=== PATIENT | female | born 1950 | race Caucasian/White ===

== ENCOUNTER → 2024-01-05 20:55 | Outpatient (REF) | payer OTHER, SELFPAY ==
[2024-01-05 21:12] LABS: Urine Albumin Negative (Neg - Trace); Urine Bilirubin Negative (Negative); Urine Character Clear (Clear); Urine Color Yellow; Urine Glucose Negative (Negative); Urine Ketone Negative (Negative); Urine Leukocyte Negative (Negative); Urine Nitrite Negative (Negative); Urine Occult Blood Negative (Negative); Urine Specific Gravity 1.005 (<1.030); Urine Urobilinogen Negative (Neg - 1+)
== END ==
LOC: OLAB 20:55
PROVIDERS: ATTENDING PHYSICIAN Student in an Organized Health Care Education/Training Program
DX: R31.0 Gross hematuria (principal); Z01.89 Encounter for other specified special examinations
CPT/HCPCS: 81003; 87086

== ENCOUNTER → 2024-01-16 10:25 | Outpatient (REF) | payer OTHER, SELFPAY ==
[2024-01-16 11:10] LABS: Blood Urea Nitrogen 16 mg/dl (7-17); Calcium 9.3 mg/dl (8.4-10.2); Carbon Dioxide 28 mmol/L (22-30); Chloride 102 mmol/L (98-107); Glucose 111 mg/dl (70-99); Sodium 137 mmol/L (135-145); eGFR > 60.00
== END ==
LOC: REG 10:25
PROVIDERS: ATTENDING PHYSICIAN Student in an Organized Health Care Education/Training Program
DX: I72.8 Aneurysm of other specified arteries (principal)
CPT/HCPCS: 36415; 80048

== ENCOUNTER → 2024-01-19 12:46 | Outpatient (REF) | payer OTHER, SELFPAY | LOC: WDC 12:46 | PROVIDERS: ATTENDING PHYSICIAN Student in an Organized Health Care Education/Training Program | DX: Z00.00 Encounter for general adult medical examination without abnormal findings (principal); N95.1 Menopausal and female climacteric states; Z12.31 Encounter for screening mammogram for malignant neoplasm of breast; Z78.0 Asymptomatic menopausal state; M85.88 Other specified disorders of bone density and structure, other site | CPT/HCPCS: 77063; 77067; 77080 ==

== ENCOUNTER → 2024-02-03 15:25 | Outpatient (REF) | payer OTHER, SELFPAY | LOC: RAD 15:25 | PROVIDERS: ATTENDING PHYSICIAN Family Medicine; FAMILY PHYSICIAN Student in an Organized Health Care Education/Training Program | DX: I72.8 Aneurysm of other specified arteries (principal) | CPT/HCPCS: 74177; Q9967 ==

== ENCOUNTER → 2024-03-24 09:40 | Outpatient (REF) | payer OTHER, SELFPAY ==
[2024-03-24 10:10] LABS: % Basophils 0.2 % (0-2); % Eosinophils 0.4 % (0-6); % Immature Granulocytes 0.1 % (0-0.5); % Lymphocytes 81.8 % (20.5-51.1); % Monocytes 9.2 % (1.7-9.3); % Neutrophils 8.3 % (42.2-75.2); Absolute Basophils 0.1 10^3/uL (0-0.2); Absolute Eosinophils 0.1 10^3/uL (0-0.7); Absolute Lymphocytes 18.5 10^3/uL (1.2-3.4); Absolute Monocytes 2.1 10^3/uL (0.1-0.6); Absolute Neutrophils 1.9 10^3/uL (1.4-6.5); Hematocrit 35.6 % (37.0-47.0); Hemoglobin 11.4 g/dL (12.0-16.0); Mean Corpuscular Hgb 27.1 pg (27.0-31.0); Mean Corpuscular Volume 84.8 fL (81.0-99.0); Mean Platelet Volume 9.2 fL (7.4-10.4); Nucleated Red Blood Cells % 0 %; Platelet Count 105 10^3/uL (130-400); Red Cell Dist. Width 14.6 % (11.5-14.5); White Blood Cell Count 22.6 10^3/uL (4.8-10.8)
[2024-03-24 10:46] LABS: LDH 223 U/L (120-246)
[2024-03-25 01:08] LABS: IgA 74 mg/dl (70-400); IgG 465 mg/dl (700-1600)
[2024-03-25 01:41] LABS: IgM < 25 mg/dl (40-230)
[2024-03-25 19:31] LABS: Number Of Markers 26 markers; Source Blood
== END ==
LOC: REG 09:40
PROVIDERS: ATTENDING PHYSICIAN Internal Medicine Hematology & Oncology; FAMILY PHYSICIAN Student in an Organized Health Care Education/Training Program
DX: R16.1 Splenomegaly, not elsewhere classified (principal); D72.829 Elevated white blood cell count, unspecified; C83.07 Small cell B-cell lymphoma, spleen; C91.10 Chronic lymphocytic leukemia of B-cell type not having achieved remission
CPT/HCPCS: 36415; 82784; 83615; 85025

== ENCOUNTER → 2024-05-24 11:17 | Outpatient (REF) | payer OTHER, SELFPAY | LOC: HWRAD 11:17 | PROVIDERS: ATTENDING PHYSICIAN Student in an Organized Health Care Education/Training Program | DX: Z87.891 Personal history of nicotine dependence (principal) | CPT/HCPCS: 71271 ==

== ENCOUNTER → 2024-08-04 10:50 | Outpatient (REF) | payer OTHER, SELFPAY ==
[2024-08-04 12:02] LABS: Hemoglobin 10.8 g/dL (12.0-16.0); Mean Corp Hgb Conc. 32.7 g/dL (33.0-37.0); Mean Corpuscular Hgb 26.7 pg (27.0-31.0); Mean Corpuscular Volume 81.7 fL (81.0-99.0); Mean Platelet Volume 9.8 fL (7.4-10.4); Platelet Count 108 10^3/uL (130-400); Red Blood Cell Count 4.04 10^6/uL (4.20-5.40); Red Cell Dist. Width 14.5 % (11.5-14.5); White Blood Cell Count 22.1 10^3/uL (4.8-10.8)
[2024-08-04 12:49] LABS: % Basophils 0.2 % (0-2); % Eosinophils 0.4 % (0-6); % Immature Granulocytes 0.1 % (0-0.5); % Lymphocytes 79.6 % (20.5-51.1); % Monocytes 12.3 % (1.7-9.3); % Neutrophils 7.4 % (42.2-75.2); Absolute Basophils 0.1 10^3/uL (0-0.2); Absolute Eosinophils 0.1 10^3/uL (0-0.7); Absolute Lymphocytes 17.6 10^3/uL (1.2-3.4); Absolute Monocytes 2.7 10^3/uL (0.1-0.6); Absolute Neutrophils 1.6 10^3/uL (1.4-6.5); Nucleated Red Blood Cells % 0 %
[2024-08-04 13:20] LABS: LDH 231 U/L (120-246)
== END ==
LOC: REG 10:50
PROVIDERS: ATTENDING PHYSICIAN Internal Medicine Hematology & Oncology; FAMILY PHYSICIAN Emergency Medicine
DX: R16.1 Splenomegaly, not elsewhere classified (principal); D72.829 Elevated white blood cell count, unspecified; C83.07 Small cell B-cell lymphoma, spleen; C91.10 Chronic lymphocytic leukemia of B-cell type not having achieved remission
CPT/HCPCS: 36415; 83615; 85025

== ENCOUNTER → 2024-08-19 10:53 | Outpatient (REF) | payer OTHER, SELFPAY ==
[2024-08-19 11:33] LABS: Hematocrit 34.5 % (37.0-47.0); Hemoglobin 11.2 g/dL (12.0-16.0); Mean Corp Hgb Conc. 32.5 g/dL (33.0-37.0); Mean Corpuscular Hgb 26.3 pg (27.0-31.0); Mean Platelet Volume 9.5 fL (7.4-10.4); Platelet Count 110 10^3/uL (130-400); Red Blood Cell Count 4.26 10^6/uL (4.20-5.40); Red Cell Dist. Width 14.4 % (11.5-14.5); White Blood Cell Count 23.3 10^3/uL (4.8-10.8)
[2024-08-19 11:44] LABS: ALT (SGPT) 18 U/L (0-35); AST (SGOT) 26 U/L (14-36); Alkaline Phosphatase 86 U/L (38-126); Blood Urea Nitrogen 20 mg/dl (7-17); Calcium 9.2 mg/dl (8.4-10.2); Carbon Dioxide 23 mmol/L (22-30); Chloride 105 mmol/L (98-107); Glucose 101 mg/dl (70-99); Potassium 4.4 mmol/L (3.5-5.1); Sodium 140 mmol/L (135-145); Total Bilirubin 0.7 mg/dl (0.2-1.3); Total Protein 5.9 g/dl (6.3-8.2); eGFR > 60.00
[2024-08-19 11:53] LABS: % Basophils 0.2 % (0-2); % Eosinophils 0.3 % (0-6); % Lymphocytes 79.8 % (20.5-51.1); % Monocytes 12.8 % (1.7-9.3); % Neutrophils 6.9 % (42.2-75.2); Absolute Eosinophils 0.1 10^3/uL (0-0.7); Absolute Lymphocytes 18.6 10^3/uL (1.2-3.4); Absolute Neutrophils 1.6 10^3/uL (1.4-6.5); Nucleated Red Blood Cells % 0 %
[2024-08-19 13:23] LABS: Hepatitis B Surface Antigen Negative (Negative)
[2024-08-19 13:41] LABS: Hepatitis B Core Ab, Total Negative (Negative); Hepatitis B Surface Antibody Positive
== END ==
LOC: REG 10:53
PROVIDERS: ATTENDING PHYSICIAN Internal Medicine Hematology & Oncology; FAMILY PHYSICIAN Emergency Medicine
DX: R16.1 Splenomegaly, not elsewhere classified (principal); D72.829 Elevated white blood cell count, unspecified; C83.07 Small cell B-cell lymphoma, spleen; C91.10 Chronic lymphocytic leukemia of B-cell type not having achieved remission
CPT/HCPCS: 36415; 80053; 85025; 86704; 86706; 87340

== ENCOUNTER → 2024-09-07 10:10 | Outpatient (REF) | payer OTHER, SELFPAY ==
[2024-09-07 11:26] LABS: Hematocrit 34.1 % (37.0-47.0); Mean Corp Hgb Conc. 32.3 g/dL (33.0-37.0); Mean Corpuscular Hgb 26.8 pg (27.0-31.0); Mean Corpuscular Volume 83.2 fL (81.0-99.0); Mean Platelet Volume 9.9 fL (7.4-10.4); Platelet Count 107 10^3/uL (130-400); Red Cell Dist. Width 13.8 % (11.5-14.5); White Blood Cell Count 21.4 10^3/uL (4.8-10.8)
[2024-09-07 11:47] LABS: Normal RBC Morphology Yes; Platelets Checked Yes; Segmented Neutrophils 10 % (42-75)
[2024-09-07 11:48] LABS: Absolute Neutrophils -Man Diff 2.1 10^3/uL (1.4-6.5); Band Neutrophils 0 % (0-3); Lymphocytes 86 % (20-51); Monocytes 4 % (2-9); Smudge Cells 1+; Total Cells Counted 100
[2024-09-07 11:55] LABS: ALT (SGPT) 14 U/L (0-35); AST (SGOT) 24 U/L (14-36); Albumin 3.9 g/dl (3.5-5.0); Alkaline Phosphatase 79 U/L (38-126); Blood Urea Nitrogen 14 mg/dl (7-17); Calcium 9.3 mg/dl (8.4-10.2); Carbon Dioxide 28 mmol/L (22-30); Chloride 104 mmol/L (98-107); Glucose 99 mg/dl (70-99); Potassium 4.3 mmol/L (3.5-5.1); Sodium 142 mmol/L (135-145); Total Bilirubin 0.6 mg/dl (0.2-1.3); Total Protein 5.8 g/dl (6.3-8.2); eGFR > 60.00
== END ==
LOC: REG 10:10
PROVIDERS: ATTENDING PHYSICIAN Internal Medicine Hematology & Oncology; FAMILY PHYSICIAN Emergency Medicine
DX: R16.1 Splenomegaly, not elsewhere classified (principal); D72.829 Elevated white blood cell count, unspecified; C83.07 Small cell B-cell lymphoma, spleen; C91.10 Chronic lymphocytic leukemia of B-cell type not having achieved remission
CPT/HCPCS: 36415; 80053; 85025

== ENCOUNTER → 2024-09-14 11:04 | Outpatient (REF) | payer OTHER, SELFPAY ==
[2024-09-14 12:08] LABS: % Basophils 0.4 % (0-2); % Eosinophils 1.5 % (0-6); % Lymphocytes 46.9 % (20.5-51.1); % Monocytes 12.2 % (1.7-9.3); Absolute Lymphocytes 1.3 10^3/uL (1.2-3.4); Absolute Monocytes 0.3 10^3/uL (0.1-0.6); Absolute Neutrophils 1.1 10^3/uL (1.4-6.5); Hematocrit 36.8 % (37.0-47.0); Hemoglobin 11.9 g/dL (12.0-16.0); Mean Corp Hgb Conc. 32.3 g/dL (33.0-37.0); Mean Corpuscular Hgb 25.5 pg (27.0-31.0); Mean Corpuscular Volume 78.8 fL (81.0-99.0); Mean Platelet Volume 9.7 fL (7.4-10.4); Nucleated Red Blood Cells % 0 %; Platelet Count 120 10^3/uL (130-400); Red Blood Cell Count 4.67 10^6/uL (4.20-5.40); Red Cell Dist. Width 13.6 % (11.5-14.5); White Blood Cell Count 2.7 10^3/uL (4.8-10.8)
[2024-09-14 12:47] LABS: ALT (SGPT) 13 U/L (0-35); AST (SGOT) 23 U/L (14-36); Albumin 4.2 g/dl (3.5-5.0); Alkaline Phosphatase 58 U/L (38-126); Blood Urea Nitrogen 19 mg/dl (7-17); Calcium 9.1 mg/dl (8.4-10.2); Carbon Dioxide 27 mmol/L (22-30); Chloride 102 mmol/L (98-107); Glucose 103 mg/dl (70-99); Potassium 4.5 mmol/L (3.5-5.1); Sodium 141 mmol/L (135-145); Total Bilirubin 1.1 mg/dl (0.2-1.3); eGFR > 60.00
== END ==
LOC: REG 11:04
PROVIDERS: ATTENDING PHYSICIAN Internal Medicine Hematology & Oncology; FAMILY PHYSICIAN Emergency Medicine
DX: R16.1 Splenomegaly, not elsewhere classified (principal); D72.829 Elevated white blood cell count, unspecified; C83.07 Small cell B-cell lymphoma, spleen; C91.10 Chronic lymphocytic leukemia of B-cell type not having achieved remission
CPT/HCPCS: 36415; 80053; 85025

== ENCOUNTER → 2024-09-21 11:08 | Outpatient (REF) | payer OTHER, SELFPAY ==
[2024-09-21 16:32] LABS: % Basophils 0.5 % (0-2); % Eosinophils 0.9 % (0-6); % Immature Granulocytes 0.7 % (0-0.5); % Lymphocytes 27.1 % (20.5-51.1); % Monocytes 6.8 % (1.7-9.3); Absolute Lymphocytes 1.2 10^3/uL (1.2-3.4); Absolute Monocytes 0.3 10^3/uL (0.1-0.6); Absolute Neutrophils 2.8 10^3/uL (1.4-6.5); Hematocrit 38.4 % (37.0-47.0); Hemoglobin 12.5 g/dL (12.0-16.0); Mean Corp Hgb Conc. 32.6 g/dL (33.0-37.0); Mean Corpuscular Hgb 25.9 pg (27.0-31.0); Mean Corpuscular Volume 79.5 fL (81.0-99.0); Mean Platelet Volume 9.1 fL (7.4-10.4); Nucleated Red Blood Cells % 0 %; Platelet Count 130 10^3/uL (130-400); Red Blood Cell Count 4.83 10^6/uL (4.20-5.40); Red Cell Dist. Width 14.6 % (11.5-14.5); White Blood Cell Count 4.4 10^3/uL (4.8-10.8)
[2024-09-21 16:56] LABS: ALT (SGPT) 13 U/L (0-35); AST (SGOT) 19 U/L (14-36); Albumin 4.2 g/dl (3.5-5.0); Alkaline Phosphatase 45 U/L (38-126); Blood Urea Nitrogen 16 mg/dl (7-17); Calcium 9.3 mg/dl (8.4-10.2); Carbon Dioxide 26 mmol/L (22-30); Chloride 103 mmol/L (98-107); Glucose 84 mg/dl (70-99); Potassium 4.2 mmol/L (3.5-5.1); Sodium 141 mmol/L (135-145); Total Bilirubin 0.8 mg/dl (0.2-1.3); Total Protein 6.1 g/dl (6.3-8.2); eGFR > 60.00
== END ==
LOC: REG 11:08
PROVIDERS: ATTENDING PHYSICIAN Internal Medicine Hematology & Oncology; FAMILY PHYSICIAN Emergency Medicine
DX: R16.1 Splenomegaly, not elsewhere classified (principal); D72.829 Elevated white blood cell count, unspecified; C83.07 Small cell B-cell lymphoma, spleen; C91.10 Chronic lymphocytic leukemia of B-cell type not having achieved remission
CPT/HCPCS: 36415; 80053; 85025

== ENCOUNTER → 2024-09-28 11:12 | Outpatient (REF) | payer OTHER, SELFPAY ==
[2024-09-28 11:58] LABS: % Basophils 0.5 % (0-2); % Eosinophils 0.9 % (0-6); % Immature Granulocytes 0.5 % (0-0.5); % Lymphocytes 24.1 % (20.5-51.1); % Monocytes 6.2 % (1.7-9.3); % Neutrophils 67.8 % (42.2-75.2); Absolute Lymphocytes 1.1 10^3/uL (1.2-3.4); Absolute Monocytes 0.3 10^3/uL (0.1-0.6); Hematocrit 38.9 % (37.0-47.0); Hemoglobin 12.8 g/dL (12.0-16.0); Mean Corp Hgb Conc. 32.9 g/dL (33.0-37.0); Mean Corpuscular Hgb 26.9 pg (27.0-31.0); Mean Corpuscular Volume 81.7 fL (81.0-99.0); Mean Platelet Volume 9.4 fL (7.4-10.4); Nucleated Red Blood Cells % 0 %; Platelet Count 109 10^3/uL (130-400); Red Blood Cell Count 4.76 10^6/uL (4.20-5.40); White Blood Cell Count 4.4 10^3/uL (4.8-10.8)
[2024-09-28 12:29] LABS: ALT (SGPT) 13 U/L (0-35); AST (SGOT) 19 U/L (14-36); Albumin 4.2 g/dl (3.5-5.0); Alkaline Phosphatase 45 U/L (38-126); Blood Urea Nitrogen 17 mg/dl (7-17); Calcium 9.2 mg/dl (8.4-10.2); Carbon Dioxide 27 mmol/L (22-30); Chloride 102 mmol/L (98-107); Glucose 100 mg/dl (70-99); Potassium 4.3 mmol/L (3.5-5.1); Sodium 141 mmol/L (135-145); Total Bilirubin 0.7 mg/dl (0.2-1.3); Total Protein 6.1 g/dl (6.3-8.2); eGFR > 60.00
== END ==
LOC: REG 11:12
PROVIDERS: ATTENDING PHYSICIAN Internal Medicine Hematology & Oncology; FAMILY PHYSICIAN Emergency Medicine
DX: R16.1 Splenomegaly, not elsewhere classified (principal); D72.829 Elevated white blood cell count, unspecified; C83.07 Small cell B-cell lymphoma, spleen; C91.10 Chronic lymphocytic leukemia of B-cell type not having achieved remission
CPT/HCPCS: 36415; 80053; 85025

== ENCOUNTER → 2024-10-26 10:57 | Outpatient (REF) | payer OTHER, SELFPAY ==
[2024-10-26 12:22] LABS: % Basophils 0.4 % (0-2); % Eosinophils 1.8 % (0-6); % Immature Granulocytes 0.6 % (0-0.5); % Lymphocytes 25.5 % (20.5-51.1); % Monocytes 6.9 % (1.7-9.3); % Neutrophils 64.8 % (42.2-75.2); Absolute Eosinophils 0.1 10^3/uL (0-0.7); Absolute Lymphocytes 1.3 10^3/uL (1.2-3.4); Absolute Monocytes 0.3 10^3/uL (0.1-0.6); Absolute Neutrophils 3.2 10^3/uL (1.4-6.5); Hematocrit 40.6 % (37.0-47.0); Hemoglobin 13.5 g/dL (12.0-16.0); Mean Corp Hgb Conc. 33.3 g/dL (33.0-37.0); Mean Corpuscular Hgb 27.9 pg (27.0-31.0); Mean Corpuscular Volume 83.9 fL (81.0-99.0); Mean Platelet Volume 9.8 fL (7.4-10.4); Nucleated Red Blood Cells % 0 %; Platelet Count 130 10^3/uL (130-400); Red Blood Cell Count 4.84 10^6/uL (4.20-5.40); Red Cell Dist. Width 15.7 % (11.5-14.5); White Blood Cell Count 4.9 10^3/uL (4.8-10.8)
[2024-10-26 13:16] LABS: ALT (SGPT) 14 U/L (0-35); AST (SGOT) 20 U/L (14-36); Albumin 4.1 g/dl (3.5-5.0); Alkaline Phosphatase 45 U/L (38-126); Blood Urea Nitrogen 17 mg/dl (7-17); Calcium 9.3 mg/dl (8.4-10.2); Carbon Dioxide 28 mmol/L (22-30); Chloride 104 mmol/L (98-107); Glucose 94 mg/dl (70-99); LDH 201 U/L (120-246); Potassium 4.4 mmol/L (3.5-5.1); Sodium 141 mmol/L (135-145); Total Bilirubin 0.6 mg/dl (0.2-1.3); Total Protein 5.9 g/dl (6.3-8.2); eGFR > 60.00
== END ==
LOC: REG 10:57
PROVIDERS: ATTENDING PHYSICIAN Internal Medicine Hematology & Oncology; FAMILY PHYSICIAN Emergency Medicine
DX: R16.1 Splenomegaly, not elsewhere classified (principal); D72.829 Elevated white blood cell count, unspecified; C83.07 Small cell B-cell lymphoma, spleen; C91.10 Chronic lymphocytic leukemia of B-cell type not having achieved remission
CPT/HCPCS: 36415; 80053; 83615; 85025

== ENCOUNTER → 2024-11-05 11:04 | Outpatient (REF) | payer OTHER, SELFPAY ==
[2024-11-05 14:20] LABS: Glycohemoglobin (HgbA1c) 5.1 % (4.0-5.6)
[2024-11-05 15:27] LABS: HDL Cholesterol 101 mg/dl; LDL Cholesterol, Calculated 143 mg/dl; Total Cholesterol 265 mg/dl (50-199); Triglyceride 107 mg/dl (10-149); Very Low Density Lipoprotein 21 mg/dl (0-30)
[2024-11-05 18:10] LABS: TSH Reflex To Free T4 2.85 uIU/ml (0.47-4.68)
== END ==
LOC: REG 11:04
PROVIDERS: ATTENDING PHYSICIAN Emergency Medicine
DX: Z00.00 Encounter for general adult medical examination without abnormal findings (principal); Z87.891 Personal history of nicotine dependence; R16.1 Splenomegaly, not elsewhere classified; N28.1 Cyst of kidney, acquired; I25.10 Atherosclerotic heart disease of native coronary artery without angina pectoris; K76.89 Other specified diseases of liver; C91.10 Chronic lymphocytic leukemia of B-cell type not having achieved remission; E78.00 Pure hypercholesterolemia, unspecified; M85.859 Other specified disorders of bone density and structure, unspecified thigh
CPT/HCPCS: 36415; 80061; 82306; 83036; 84443

== ENCOUNTER → 2025-01-24 10:41 | Outpatient (REF) | payer OTHER, SELFPAY ==
[2025-01-24 12:47] LABS: % Basophils 0.4 % (0-2); % Eosinophils 1.2 % (0-6); % Immature Granulocytes 0.4 % (0-0.5); % Lymphocytes 24.1 % (20.5-51.1); % Monocytes 7.2 % (1.7-9.3); % Neutrophils 66.7 % (42.2-75.2); Absolute Eosinophils 0.1 10^3/uL (0-0.7); Absolute Lymphocytes 1.2 10^3/uL (1.2-3.4); Absolute Monocytes 0.4 10^3/uL (0.1-0.6); Absolute Neutrophils 3.4 10^3/uL (1.4-6.5); Hematocrit 38.6 % (37.0-47.0); Hemoglobin 13.1 g/dL (12.0-16.0); Mean Corp Hgb Conc. 33.9 g/dL (33.0-37.0); Mean Corpuscular Hgb 28.9 pg (27.0-31.0); Mean Corpuscular Volume 85.2 fL (81.0-99.0); Mean Platelet Volume 9.4 fL (7.4-10.4); Nucleated Red Blood Cells % 0 %; Platelet Count 152 10^3/uL (130-400); Red Blood Cell Count 4.53 10^6/uL (4.20-5.40); Red Cell Dist. Width 13.4 % (11.5-14.5)
[2025-01-24 13:16] LABS: LDH 199 U/L (120-246)
== END ==
LOC: WDC 10:41
PROVIDERS: ATTENDING PHYSICIAN Emergency Medicine; FAMILY PHYSICIAN Internal Medicine Hematology & Oncology
DX: Z12.31 Encounter for screening mammogram for malignant neoplasm of breast (principal); R16.1 Splenomegaly, not elsewhere classified; D72.829 Elevated white blood cell count, unspecified; C83.07 Small cell B-cell lymphoma, spleen; C91.10 Chronic lymphocytic leukemia of B-cell type not having achieved remission
CPT/HCPCS: 36415; 77063; 77067; 83615; 85025

== ENCOUNTER → 2025-02-02 12:51 | Outpatient (REF) | payer OTHER, SELFPAY ==
[2025-02-02 15:33] LABS: Blood Urea Nitrogen 12 mg/dl (7-17); Calcium 9.5 mg/dl (8.4-10.2); Carbon Dioxide 28 mmol/L (22-30); Chloride 104 mmol/L (98-107); Glucose 90 mg/dl (70-99); Potassium 3.8 mmol/L (3.5-5.1); Sodium 138 mmol/L (135-145); eGFR > 60.00
== END ==
LOC: REG 12:51
PROVIDERS: ATTENDING PHYSICIAN Emergency Medicine
DX: I10 Essential (primary) hypertension (principal)
CPT/HCPCS: 36415; 80048

== ENCOUNTER → 2025-02-16 07:50 | Outpatient (REF) | payer OTHER, SELFPAY | LOC: RAD 07:50 | PROVIDERS: ATTENDING PHYSICIAN Emergency Medicine | DX: I72.8 Aneurysm of other specified arteries (principal) | CPT/HCPCS: 74174; Q9967 ==

== ENCOUNTER 2025-03-30 06:07 | Day surgery (SDC) | payer OTHER, SELFPAY ==
[2025-03-02 09:13] LABS: Hematocrit 40.2 % (37.0-47.0); Hemoglobin 13.7 g/dL (12.0-16.0); Mean Corp Hgb Conc. 34.2 g/dL (33.0-37.0); Mean Corpuscular Hgb 29.3 pg (27.0-31.0); Mean Corpuscular Volume 85.9 fL (81.0-99.0); Mean Platelet Volume 9.1 fL (7.4-10.4); Platelet Count 128 10^3/uL (130-400); Red Blood Cell Count 4.67 10^6/uL (4.20-5.40); Red Cell Dist. Width 13.4 % (11.5-14.5); White Blood Cell Count 4.9 10^3/uL (4.8-10.8)
[2025-03-02 11:49] LABS: Blood Urea Nitrogen 16 mg/dl (7-17); Calcium 9.8 mg/dl (8.4-10.2); Carbon Dioxide 28 mmol/L (22-30); Chloride 104 mmol/L (98-107); Glucose 90 mg/dl (70-99); Potassium 4.1 mmol/L (3.5-5.1); Sodium 141 mmol/L (135-145); eGFR > 60.00
[2025-03-02 13:55] VITALS: BMI 22.1
[2025-03-30] VITALS (9 sets, daily range): BP systolic 107–147; BP diastolic 45–74; BMI 22.1
[2025-03-30] MEDS: NORMOSOL-R/PLASMALYTE-A 1000 IV (07:08)
[2025-03-30] MEDS: TYLENOL 1000 MG PO (07:08)
[2025-03-30] MEDS: DILAUDID 0.25 MG IV ×2 (09:34→09:58)
== END 2025-03-30 11:31 | disposition home or self-care (01) ==
LOC: SDS 06:07
PROVIDERS: ATTENDING PHYSICIAN Surgery; FAMILY PHYSICIAN Emergency Medicine
DX: K40.90 Unilateral inguinal hernia, without obstruction or gangrene, not specified as recurrent (principal); K41.90 Unilateral femoral hernia, without obstruction or gangrene, not specified as recurrent
CPT/HCPCS: 49650; 49550; 36415; 80048; 85027; 93005; C1781

== ENCOUNTER → 2025-04-26 10:41 | Outpatient (REF) | payer OTHER, SELFPAY ==
[2025-04-26 11:49] LABS: % Basophils 0.4 % (0-2); % Eosinophils 2.4 % (0-6); % Immature Granulocytes 0.4 % (0-0.5); % Lymphocytes 23.3 % (20.5-51.1); % Monocytes 7.9 % (1.7-9.3); % Neutrophils 65.6 % (42.2-75.2); Absolute Eosinophils 0.1 10^3/uL (0-0.7); Absolute Lymphocytes 1.1 10^3/uL (1.2-3.4); Absolute Monocytes 0.4 10^3/uL (0.1-0.6); Hematocrit 39.8 % (37.0-47.0); Hemoglobin 13.4 g/dL (12.0-16.0); Mean Corp Hgb Conc. 33.7 g/dL (33.0-37.0); Mean Corpuscular Hgb 29.4 pg (27.0-31.0); Mean Corpuscular Volume 87.3 fL (81.0-99.0); Mean Platelet Volume 9.6 fL (7.4-10.4); Nucleated Red Blood Cells % 0 %; Platelet Count 128 10^3/uL (130-400); Red Blood Cell Count 4.56 10^6/uL (4.20-5.40); Red Cell Dist. Width 13.2 % (11.5-14.5); White Blood Cell Count 4.6 10^3/uL (4.8-10.8)
[2025-04-26 12:35] LABS: ALT (SGPT) 14 U/L (0-35); AST (SGOT) 19 U/L (14-36); Albumin 4.3 g/dl (3.5-5.0); Alkaline Phosphatase 53 U/L (38-126); Blood Urea Nitrogen 12 mg/dl (7-17); Calcium 9.6 mg/dl (8.4-10.2); Carbon Dioxide 29 mmol/L (22-30); Chloride 108 mmol/L (98-107); Glucose 98 mg/dl (70-99); LDH 197 U/L (120-246); Potassium 4.4 mmol/L (3.5-5.1); Sodium 139 mmol/L (135-145); Total Bilirubin 0.8 mg/dl (0.2-1.3); Total Protein 6.1 g/dl (6.3-8.2); eGFR > 60.00
== END ==
LOC: REG 10:41
PROVIDERS: ATTENDING PHYSICIAN Nurse Practitioner Primary Care; FAMILY PHYSICIAN Emergency Medicine
DX: R16.1 Splenomegaly, not elsewhere classified (principal); D72.829 Elevated white blood cell count, unspecified; C83.07 Small cell B-cell lymphoma, spleen; C91.10 Chronic lymphocytic leukemia of B-cell type not having achieved remission
CPT/HCPCS: 36415; 80053; 83615; 85025

== ENCOUNTER → 2025-05-27 11:11 | Outpatient (REF) | payer OTHER, SELFPAY | LOC: HWRAD 11:11 | PROVIDERS: ATTENDING PHYSICIAN Emergency Medicine | DX: Z87.891 Personal history of nicotine dependence (principal) | CPT/HCPCS: 71271 ==

== ENCOUNTER 2025-09-08 12:58 | Inpatient (IN) | payer OTHER, SELFPAY ==
[2025-09-07 16:58] VITALS: BP 117/76
[2025-09-07 17:27] LABS: Hematocrit 41.4 % (37.0-47.0); Hemoglobin 14.2 g/dL (12.0-16.0); Mean Corp Hgb Conc. 34.3 g/dL (33.0-37.0); Mean Corpuscular Volume 85.2 fL (81.0-99.0); Nucleated Red Blood Cells % 0 %; Platelet Count 135 10^3/uL (130-400); Red Cell Dist. Width 12.5 % (11.5-14.5)
[2025-09-07 17:39] LABS: ALT (SGPT) 16 U/L (0-35); AST (SGOT) 22 U/L (14-36); Albumin 4.5 g/dl (3.5-5.0); Alkaline Phosphatase 61 U/L (38-126); Blood Urea Nitrogen 14 mg/dl (7-17); Calcium 9.7 mg/dl (8.4-10.2); Carbon Dioxide 22 mmol/L (22-30); Chloride 102 mmol/L (98-107); Glucose 169 mg/dl (70-99); Lipase 39 U/L (23-300); Potassium 3.7 mmol/L (3.5-5.1); Sodium 134 mmol/L (135-145); Total Protein 6.5 g/dl (6.3-8.2); eGFR > 60.00
--- NOTE | 2025-09-07 20:34 | ED.GENMED ---
History of Present Illness
General
Chief Complaint: Abdominal Pain
Source: patient
Exam Limitations: none
Time Seen by Provider: 09/07/25 20:29
Nursing documentation reviewed up to this point in time: agreed with
History of Present Illness
History of Present Illness:
75-year-old female history of hypertension prior hernia surgery by Dr Crystal less than 24 hours of abdominal pain worsened this morning in the right lower abdomen nausea vomiting 1 solid bowel movement earlier today, no fevers, not much of an
appetite
Past History
Past History
ED Past Medical History: None
ED Past Surgical History: None
Social History
Tobacco: Former smoker
Alcohol: None
Drug: None
Personal:
Living: with family
Employment: Employed
Family History
Family History: Hypertension; Negative Early CAD or Sudden
Phy Exam
Physical Exam
Physical Exam:
Physical Exam
General: Nontoxic 75 female
Neck: No jaw
Heart: s1/s2 regular rate and rhythm, no murmur. equal radial pulses.
Lungs: no acute respiratory distress.
Abdomen: Tender with mild guarding in the right lower abdomen
Neuro: alert and oriented. no focal neurological deficits
Skin: no rash
Psychiatric: well kept. interactive and cooperative
Extremities: no edema.
Course
Orders/Labs/Results
Orders:
Orders
09/07/25 17:03
Electrocardiogram (*1) Urgent
Reason for Study: Abdominal Pain
EKG- Treatment ONCE
09/07/25 17:10
Complete Blood Count/With Diff Urgent
Comprehensive Metabolic Panel Urgent
Lipase Urgent
09/07/25 19:35
CT Abd/pelvis W Iv Cont Urgent
Comment:
Reason For Exam: rlq pain
09/07/25 20:09
Urinalysis Reflex To Culture Urgent
Date Specimen was Collected: 09/07/25
Time Specimen was Collected: 17:04
09/07/25 20:33
0.9% Sodium Chloride 1000 ml [Nss] 1,000 ml IV BOLUS
HYDROmorphone [Dilaudid] 0.5 mg IV NOW STA
Ondansetron Injectable [Zofran] 4 mg IV NOW STA
09/07/25 22:00
Piperacillin/Tazo 3.375 Gram [Zosyn] 3.375 gram in 50 ml IV NOW
Abnormal Lab Results
09/07/25
17:10
Absolute Neuts (auto) 8.5 H 10^3/uL
(1.4-6.5)
Absolute Lymphs (auto) 1.0 L 10^3/uL
(1.2-3.4)
Absolute Monos (auto) 1.0 H 10^3/uL
(0.1-0.6)
Neutrophils % 80.3 H %
(42.2-75.2)
Lymphocytes % 9.1 L %
(20.5-51.1)
Monocytes % 9.9 H %
(1.7-9.3)
Sodium 134 L mmol/L
(135-145)
Glucose 169 H mg/dl
(70-99)
Total Bilirubin 2.1 H mg/dl
(0.2-1.3)
09/07/25 17:10
09/07/25 17:10
Vital Signs
Initial and Last Documented VS:
Initial Vital Signs
Temp Pulse Resp BP Pulse Ox
99.1 F 96 16 117/76 98
09/07/25 16:58 09/07/25 16:58 09/07/25 16:58 09/07/25 16:58 09/07/25 16:58
Last Documented Vital Signs
Temp Pulse Resp BP Pulse Ox
99.1 F 90 16 123/72 98
09/07/25 16:58 09/07/25 20:44 09/07/25 20:44 09/07/25 20:44 09/07/25 20:44
MDM/Problems Addressed
Differential Diagnosis Includes:
Appendicitis, bowel obstruction, right-sided diverticulitis, urinary tract pathology
MDM/Problems Addressed:
Right-sided abdominal
Chronic conditions affecting care: Previous abdomnial surgery
Acute Exacerbation and/or Progression of Chronic Illness: Previous abdomnial surgery
*Radiology
Radiology exam reviewed: radiology read reviewed
*Pulse Oximetry
SaO2: 98
Oxygen Mode of Delivery: Room air
Patient hypoxic: no
*EKG
Interpreted by ED Provider?: Yes
Interpretation: abnormal
Comparison EKG: no comparison EKG present
Heart Rate: 78
Rate: normal
Rhythm: sinus
Ischemia: non-specific ST changes
*G[employer] Superintendent Interpretation
Rate: normal
Interpretation: normal
Heart Rate: 78
Rhythm: sinus
*Critical Care Note
Total Time (30-74mins, 75-104mins- exclusive of procedures): Not Applicable
Update Note
Update Note:
10 PM message from radiology positive appendicitis message sent to on-call general surgery patient updated
ED Attending Note
-
Portions of this chart may have been created with voice recognition software.� Occasional wrong word or��sound alike� substitutions may have occurred due to the inherent limitations of voice recognition software.
Discharge Plan
Departure
Patient Disposition: Admit
Date of Disposition: 09/07/25
Time of Disposition: 22:04
Admit to: Med/Surg
Presentation/result/management discussed w/ accepting MD/DO: General surgery
Patient with high blood pressure during this ER visit?: No
Condition: Good
Discharge Problem:
Acute appendicitis
Prescriptions:
No Action
cyanocobalamin (vitamin B-12) [Vitamin B-12] 1,000 mcg Tablet
1,000 mcg PO DAILY
amlodipine 5 mg Tablet
2.5 mg PO BID
rosuvastatin 5 mg Tablet
5 mg PO DAILY
calcium carbonate-vitamin D3 [Calcium 600 + D(3)] 600 mg-10 mcg (400 unit) Tablet
1 tab PO BID
acetaminophen [acetaminophen] 325 mg tablet
650 mg PO Q4HPRN PRN (Reason: mild pain) Qty: 1 0RF
tramadol 50 mg tablet
50 mg PO Q6HPRN PRN (Reason: severe pain/breakthrough pain) Qty: 7 0RF
ibuprofen 200 mg tablet
400 - 600 mg PO Q6HPRN PRN (Reason: moderate pain) Qty: 1 0RF
Interventions
Interventions:
*Risk Screen - Suicide Last Done: 09/07/25 16:58
*Neglect/Abuse Screening Last Done: 09/07/25 16:58
*ED- Fall Risk Assessment Last Done: 09/07/25 20:46
PG-Jiqzgc-Gcyfiswjry Assessment Last Done: 09/07/25 20:45
Discharge Date and Time
Print Language: SWEDISH
[2025-09-07 20:44] VITALS: BP 123/72
[2025-09-07] MEDS: NSS 1000 IV (21:26)
[2025-09-07] MEDS: ZOFRAN 4 MG IV (21:27)
[2025-09-07] MEDS: DILAUDID 0.5 MG IV (21:27)
[2025-09-07 21:28] VITALS: BMI 28.3
[2025-09-07 22:40] VITALS: BP 116/50
[2025-09-07] MEDS: ZOSYN 50 IV (22:40)
[2025-09-08] VITALS (16 sets, daily range): BP systolic 106–138; BP diastolic 52–70; BMI 27.7
--- NOTE | 2025-09-08 00:38 | HPS.HSE ---
Addendum entered and electronically signed by Colten Mallory MD 09/08/25 08:04:
Patient seen and examined independently of admitting nurse practitioner. Agree with documented admission H&P consistent with my current evaluation and examination.
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
Patient states she developed acute onset of abdominal pain yesterday a.m. which rather rapidly increased in severity and began localizing to the right lower quadrant. She had nausea and vomiting and followed up with her primary care provider. She
was referred for emergency department evaluation based on localizing tenderness in the right lower quadrant. No similar episodes like this in the past. Pain persisted this a.m. but her nausea and vomiting have subsided.
Past abdominal surgical history only notable for RAL RIH repair this past March from which she has recovered well
AF VSS
NAD AAO x 3 resting comfortably in hospital bed in emergency department room
ABD: Soft, tenderness to palpation localizing to the right abdomen with voluntary guarding and rebound robotic surgical scar sites well-healed.
CT abdomen/pelvis personally reviewed as well as radiologist report. Dilated fluid-filled appendix with wall enhancement and surrounding inflammatory changes and stranding. Some adjacent free fluid but no organizing fluid collections. Reactive
inflammation of adjacent distal ileum and cecum but no phlegmonous changes. No additional notable acute intra-abdominal findings.
Assessment/plan: 75-year-old female presenting with acute appendicitis
Reviewed with patient treatment options including operative and nonoperative management. Patient in agreement to proceed with appendectomy for definitive treatment. Laparoscopic appendectomy was reviewed including the operative technique,
potential operative findings and the management, alternative treatment options, benefits and risks of surgery such as but not limited to bleeding, infectious and wound related complications, iatrogenic injury to surrounding viscera. We discussed
the typical postoperative recovery pending intraoperative findings. Any of the patient's concerns or questions were confirmed to be fully addressed and informed consent was obtained.
Continue current supportive care awaiting OR availability
Zosyn
N.p.o.
IV fluids
Original Note:
Family Physician
-
Family Physician: ZAID Noel
Chief Complaint
-
Abdominal Pain
History of Present Illness
Patient is a 75 year old female with a past medical history significant for hypertension, hyperlipidemia, CLL, marginal zone lymphoma with splenomegaly, and splenic artery aneurysm who presents to the emergency department for acute right lower
quadrant abdominal pain. Patient states severe pain started in her left lower abdomen in the morning but she has been having achiness on and off for some period of time. She does report nausea and vomiting and was unable to eat or drink anything
during the day. She denies fevers, fatigue, diarrhea, constipation. Patient had right inguinal hernia surgery 03/30/[address] Crystal. Patient states she completed her oncology treatments with [facility], Dr. Orellana, and she continues
to follow up with them.
In the emergency department: Labs generally unremarkable. NA 134. Total bilirubin 2.1. Vital signs stable. Patient afebrile.
CT abdomen/pelfic w/IV contrast findings compatible with appendicitis. No evidence of abscess. Small to moderate amount of free fuid within the pelvic cul-de-sac. Coronary artery calcifications are present. Small central hiatal hernia. Stable
splenomegaly. Two calcified splenic artery aneurysms, stable from CT antiography of February 16, 2025. One cm hyperdense cyst arising from the posterior right mid kidney, uncharged for CT angiography of February 16, 2025.
In the emergency department patient received: NSS 1 liter bolus, Zofran 4 mg IV x 1 dose, Dilaudid 0.5 mg IV x 1 dose and Iv antibiotics, Zosyn 3.375 gram x 1 dose.
ED provider, Dr. Dawkins reviewed with General Surgery, Dr. Mallory, who is accepting the patient to his service.
Plan: NPO, IV antibiotics, IV fluids, pain management, and antiemetics.
Medical History
Past Medical History
Past Medical History: Reports Cancer (CLL/Splenic cancer ), HTN, Hypercholesterolemia and Other (Splenomegaly, splenic aortic aneurysm )
Past Surgical History: Reports Tonsilectomy and Other (Inguinal hernia repair)
Social History
Tobacco: Former Smoker (1/2 pk/day for 40 years)
Alcohol: Occasional
Drug: None
Personal: Single
Living: Alone
Employment: Retired
Family History
Family History: Cancer (Father, colon cancer, at 60) and Other (Mother, heart disease (unknown type), alive, 97)
Allergies / Home Medications
Allergies reflects when Allergies were last updated in [employer].
Home Medications with original date entered in [employer]
Allergy/Medication List:
Patient Allergies
Allergy/AdvReac Type Severity Reaction Status Date / Time
pollen extracts Allergy seasonal Verified 09/07/25 17:02
allergies
Home Medications
�Medication �Instructions �Recorded
amlodipine 5 mg tablet 2.5 mg PO BID 03/23/25
calcium 600 mg (as 1 tab PO BID 03/23/25
carbonate)-vitamin D3 10 mcg (400
unit) tablet (Calcium 600 + D(3))
cyanocobalamin (vitamin B-12) 1,000 mcg PO DAILY 03/23/25
1,000 mcg tablet (Vitamin B-12)
rosuvastatin 5 mg tablet 5 mg PO DAILY 03/23/25
acetaminophen 325 mg tablet 650 mg (2 x 325 mg) PO Q4HPRN PRN 03/30/25
mild pain #1 tab
ibuprofen 200 mg tablet 400 - 600 mg (2 - 3 x 200 mg) PO 03/30/25
Q6HPRN PRN moderate pain #1 tab
tramadol 50 mg tablet 50 mg PO Q6HPRN PRN severe 03/30/25
pain/breakthrough pain #7 tabs
Review of Systems
-
History Source: Patient
A 12 point ROS was completed and negative except as noted: Yes
Constitutional: Reports Fatigue and Other (Poor appetite)
EENT: Reports No Symptoms
Respiratory: Reports No Symptoms
Cardiac: Reports No Symptoms
Abdomen/GI: Reports Abdominal Pain (Right lower quadrant)
: Reports No Symptoms
Musculoskeletal: Reports No Symptoms
Skin: Reports No Symptoms
Neurological: Reports No Symptoms
Psych: Reports No Symptoms
Physical Exam
Vital Signs
Vital Signs
Temp Pulse Resp BP Pulse Ox
97.8 F 90 16 116/50 96
09/07/25 22:40 09/07/25 22:40 09/07/25 22:40 09/07/25 22:40 09/07/25 22:40
Physical Exam
General: Well Nourished, No Apparent Distress and Comfortable
HEENT: NormoCephalic, Moist mucous membranes, PERRLA and Hearing Impaired (pt wears b/l hearing aids)
Respiratory: Clear and Non Labored Respirations
Cardiac: S1/S2 and Regular Rhythm
GI: Soft, Non Distended, Normal Bowel Sounds and Tender (right lower quadrant)
Skin: Warm and Dry
Neuro: Awake and AO x 3
Psych: Calm and Intact Judgment/Insight
Laboratory Results
-
09/07/25 17:10
09/07/25 17:10
Laboratory Results
Total Bilirubin 2.1 mg/dl (0.2-1.3) H 09/07/25 17:10
AST 22 U/L (14-36) 09/07/25 17:10
ALT 16 U/L (0-35) 09/07/25 17:10
Alkaline Phosphatase 61 U/L (38-126) 09/07/25 17:10
Lipase 39 U/L (23-300) 09/07/25 17:10
Data Reviewed
-
CT Scan: Report Reviewed by me
Lab Data: Labs Reviewed by me
Impression/Plan
-
IMPRESSION:
Patient is a 75 year old female with a past medical history significant for hypertension, hyperlipidemia, CLL, marginal zone lymphoma with splenomegaly, and splenic artery aneurysm who presents to the emergency department for acute right lower
quadrant abdominal pain.
PLAN:
Acute appendicitis
-Admit to General Surgery, Med Surg under the service of Dr. Mallory
-CT Abd/Pelvis w/IV contrast findings compatible with appendicitis. No evidence of abscess. Small to moderate amount of free fluid within the pelvic cul-de-sac. Coronary artery calcifications are present. Small central hiatal hernia. Stable
splenomegaly. Two calcified splenic artery aneurysms, stable from CT antiography of February 16, 2025. One cm hyperdense cyst arising from the posterior right mid kidney, uncharged for CT angiography of February 16, 2025.
-NPO until seen by surgery, IV fluids NSS @ 75 mls/hr
-IV antibiotics: Continued Zosyn 3.375 mg Q6H.
-Pain medication: Toradol, Dilaudid
-Antiemetics: Zofran
Hypertension/Hyperlipidemia
Continue home medications: Amlodipine and Rosuvastatin
DVT prophylaxis: SCD's
Code Status: Full Code
[2025-09-08 04:43] LABS: Urine Character Clear (Clear)
[2025-09-08 04:47] LABS: Urine Red Blood Cell 0-2 /HPF (0-2); Urine Squamous Cell 0-2 /LPF (Few); Urine White Cell 0-2 /HPF (0-5)
[2025-09-08] MEDS: DILAUDID 0.5 MG IV (05:20)
[2025-09-08] MEDS: ZOSYN 50 IV ×4 (05:20→21:05)
[2025-09-08] MEDS: NSS 1000 IV ×3 (05:21→23:35)
[2025-09-08] MEDS: TORADOL 10 MG IV (07:37)
[2025-09-08] MEDS: NORVASC 2.5 MG PO ×2 (07:37→20:00)
[2025-09-08] MEDS: CRESTOR 5 MG PO (07:37)
--- NOTE | 2025-09-08 08:04 | W.SUR.PREOP ---
Pre-Operative Surgical Note
-
I have examined this patient prior to the performance of the scheduled procedure.
The patient's condition is unchanged from the time of the current History and
Physical and the patient is able to undergo the scheduled procedure.
--- NOTE | 2025-09-08 10:55 | CM ---
CM reviewed the chart and met with patient at bedside in ED room 15
Lives alone in her condo. It is one story set up but her condo is on the second floor
10-15 LUIS no elevator in the building
pt states that she was independent with ADLs
Pt drives
no use of DME per pt
Pt's 2 sisters Marleny and Daksha live at a different address, close by in [place]
Per pt, they are currently in [place] till 09/16
Pt reports that her neighbors are very supportive ; will be able to provide transportation and help her at home.
Pt confirms that she is scheduled for appendectomy today.
Pt voiced the understanding
PCP Traci Puente
RX Yes
Pharmacy [facility]
No hx of VN or SNF per pt
YAÑEZ reviewed and signed by pt
Copy left with pat and no questions at this times
Anticipated dc location home vs home with HHC
CM will continue to follow patient for any discharge planning needs
--- NOTE | 2025-09-08 11:11 | PTCARENOTE ---
report given to or nurse. pt sent to or with all belongings including eye glasses and phone.
--- NOTE | 2025-09-08 12:47 | W.IMMPOSTOP ---
Addendum entered and electronically signed by Colten Mallory MD 09/08/25 12:58:
#[id number]
Original Note:
Surgical Immed Post Op Note
-
Primary Surgeon: Colten Mallory MD
Assisting Surgeon: Oniel ROMERO
Pre-op Diagnosis: Acute appendicitis
Post-op Diagnosis: Gangrenous, perforated acute appendicitis with intra-abdominal abscess; localized peritonitis
Procedure Performed: Laparoscopic appendectomy
Anesthesia Type: GETA +0.25% Marcaine with epi
Specimen / Cultures: Appendix/abscess pus
Estimated Blood Loss: 12 mL
Complications: None immediate
Operative Findings: Walled off gangrenous appendix in the right lower quadrant with abscess and copious pus. Abscess and exudate evacuated/irrigated with 2 L locally till clear. Localized peritonitis. Gangrenous perforation of mid appendix.
Appendix was mobilized with harmonic and divided flush with the cecum utilizing endoscopic CODY haque 30 mm stapler. Staple line well-approximated and hemostatic.
Drain: 19 [place] drain placed into the pelvis and right paracolic gutter
Plan: Clear liquids -expecting ileus
DAVID until clear
Continue Zosyn
Follow operative cultures of abscess purulence
[2025-09-08] MEDS: DILAUDID 0.25 MG IV ×2 (13:55→14:40)
--- NOTE | 2025-09-08 15:14 | PTCARENOTE ---
Received patient from PACU via bed around 1500 in stable condition. DAVID drain in place. Patient oriented to room. Call winston in reach.
[2025-09-08] MEDS: LOVENOX 40 MG SC (18:22)
[2025-09-09 03:00] VITALS: BP 118/60
[2025-09-09] MEDS: ZOSYN 50 IV ×4 (03:35→21:02)
[2025-09-09 06:00] VITALS: BMI 28.2
[2025-09-09 06:49] LABS: Hematocrit 32.7 % (37.0-47.0); Hemoglobin 11.1 g/dL (12.0-16.0); Mean Corp Hgb Conc. 33.9 g/dL (33.0-37.0); Mean Corpuscular Volume 89.3 fL (81.0-99.0); Platelet Count 114 10^3/uL (130-400); Red Cell Dist. Width 12.7 % (11.5-14.5)
[2025-09-09 06:58] LABS: Blood Urea Nitrogen 11 mg/dl (7-17); Calcium 8.3 mg/dl (8.4-10.2); Carbon Dioxide 23 mmol/L (22-30); Chloride 112 mmol/L (98-107); Estimated Creatinine Clearance 68 ml/min; Glucose 137 mg/dl (70-99); Potassium 3.5 mmol/L (3.5-5.1); Sodium 139 mmol/L (135-145); eGFR > 60.00
[2025-09-09 07:00] VITALS: BP 128/66
[2025-09-09] MEDS: CRESTOR 5 MG PO (09:05)
[2025-09-09] MEDS: NORVASC 2.5 MG PO ×2 (09:05→20:45)
[2025-09-09] MEDS: NSS 1000 IV (09:16)
--- NOTE | 2025-09-09 09:40 | W.PN.GS2 ---
Today's Communication / Plan
-
-- Clears, possible NPO if further nausea
-- IVF
-- Abx: Zosyn, would plan on 7-10 day course
-- OOB/ambulate
-- Repeat CBC tomorrow
Assessment / Plan
-
Patient is a 75 yo F POD#1 s/p laparoscopic appendectomy and drainage of intra-abdominal abscess for perforated appendicitis
AVSS
Labs notable for normal WBC, drop in Hb 14 -> 11, normal electrolytes and renal function
Given the perforated nature of her appendicitis she is at increased risk for an ileus. Given her abdominal distention and burping recommend limited clears for today. Encouraged ambulation. Drift in Hb likely related to hydration, good urine
output, no tachycardia or hypotension. Would repeat CBC tomorrow. Okay to continue with Toradol and Lovenox.
-- Clears, possible NPO if further nausea
-- IVF
-- Abx: Zosyn, would plan on 7-10 day course
-- Pain control: Tylenol, Toradol, IV Dialudid PRN
-- Home meds
-- OOB/ambulate
-- Repeat CBC tomorrow
Subjective Data
-
Date of Service: September 09, 2025
Reports abdominal discomfort, bloating, and burping. No flatus or BM. Minimal ambulation. Afebrile.
Objective Data
-
Intake and Output
09/08/25 09/09/25 09/10/25
06:59 06:59 06:59
Intake Total 400 / 400
Output Total 650 / 650
Balance -250 / -250
Intake:
IV fluids (Total) 400 / 400
Normosal 400 / 400
Output:
Drain Output (Total) 200 / 200
Left Middle Abdomen Forrest- 200 / 200
[place]
Urine, Voided 450 / 450
Other:
Number of approximated LARGE 1
amounts of urine
Vital Signs
Temp Pulse Resp BP Pulse Ox
98.4 F 84 22 128/66 95
09/09/25 07:00 09/09/25 09:05 09/09/25 07:00 09/09/25 09:05 09/09/25 07:00
Lab Results
09/09/25 05:48
09/09/25 05:48
Calcium 8.3 mg/dl (8.4-10.2) L 09/09/25 05:48
Total Bilirubin 2.1 mg/dl (0.2-1.3) H 09/07/25 17:10
AST 22 U/L (14-36) 09/07/25 17:10
ALT 16 U/L (0-35) 09/07/25 17:10
Alkaline Phosphatase 61 U/L (38-126) 09/07/25 17:10
Total Protein 6.5 g/dl (6.3-8.2) 09/07/25 17:10
Albumin 4.5 g/dl (3.5-5.0) 09/07/25 17:10
Physical Exam
-
Gen: NAD
Abd: soft, diffusely tender, distended, tympanitic, non-peritoneal, incisions c/d/i - no erythema, ecchymosis or drainage, DAVID with serosang with some debris
Patient has a chan catheter: No
Patient has a central line: No
[2025-09-09 11:00] VITALS: BP 115/60
[2025-09-09] MEDS: TYLENOL 650 MG PO ×3 (12:07→20:45)
--- NOTE | 2025-09-09 13:18 | CM ---
CM following re: discharge planning.
Reviewed pt's chart, met with pt.
Per UR CM, pt is upgraded to inpatient level of admission. IMM reviewed, placed on chart, pt has a copy.
Pt is POD#1 s/p laparoscopic appendectomy and drainage of intra-abdominal abscess for perforated appendicitis. Continue supportive care.
Pt stated she feels she will need home care services and she requested [facility]. A referral to [facility] made.
PT and OT will evaluate the pt to determine a level of care at discharge.
D/C plan: home with [facility] and family support.
CM will follow with discharge plan updates as hospitalization progresses
[2025-09-09 15:00] VITALS: BP 129/62
--- NOTE | 2025-09-09 15:35 | VNURNOTE ---
Home Health Liaison met with patient at bedside to discuss [facility] nurse/therapy, visits, schedule and homebound status. Patient is agreeable and understands that visits at home will be 2-3 x per week to assess and teach medical management. Will
watch if home w/drain. Patient is aware that [facility] will contact them for start of care in 1-2 days after discharge from . Provided contact number for [facility].
PM [facility] referral completed in [facility].
[2025-09-09] MEDS: LOVENOX 40 MG SC (18:03)
[2025-09-09 19:00] VITALS: BP 145/71
[2025-09-09 23:00] VITALS: BP 132/63
[2025-09-10] MEDS: NSS 1000 IV (00:10)
[2025-09-10] MEDS: TYLENOL PO ×3 (00:12→23:45)
[2025-09-10] MEDS: ZOFRAN 4 MG IV ×2 (01:42→21:20)
[2025-09-10 03:15] VITALS: BP 150/71
--- NOTE | 2025-09-10 03:22 | PTCARENOTE ---
Pt again c/o nausea unrelieved with prn zofran. Pt HOB raised higher, belching and states feeling somewhat better but still 'a little nauseous'. ZAID nugent notified and order in for prn compazine.
[2025-09-10] MEDS: ZOSYN 50 IV ×4 (03:28→21:20)
[2025-09-10] MEDS: COMPAZINE 10 MG IV ×2 (03:28→23:41)
[2025-09-10 05:00] VITALS: BMI 28.2
[2025-09-10 05:37] VITALS: BMI 28.2
[2025-09-10 06:44] LABS: Hematocrit 31.7 % (37.0-47.0); Hemoglobin 10.8 g/dL (12.0-16.0); Mean Corp Hgb Conc. 34.1 g/dL (33.0-37.0); Mean Corpuscular Volume 86.4 fL (81.0-99.0); Platelet Count 114 10^3/uL (130-400); Red Cell Dist. Width 12.6 % (11.5-14.5)
[2025-09-10 07:15] VITALS: BP 156/80
[2025-09-10 07:15] LABS: Blood Urea Nitrogen 8 mg/dl (7-17); Calcium 7.8 mg/dl (8.4-10.2); Carbon Dioxide 25 mmol/L (22-30); Chloride 112 mmol/L (98-107); Estimated Creatinine Clearance 68 ml/min; Glucose 124 mg/dl (70-99); Potassium 3.1 mmol/L (3.5-5.1); Sodium 140 mmol/L (135-145); eGFR > 60.00
[2025-09-10] MEDS: KCL 1020 MEQ IV (08:45)
[2025-09-10] MEDS: TYLENOL 650 MG PO ×4 (08:46→19:50)
[2025-09-10] MEDS: CRESTOR 5 MG PO (08:46)
[2025-09-10] MEDS: NORVASC 2.5 MG PO ×2 (08:47→19:53)
--- NOTE | 2025-09-10 12:24 | W.PN.GS2 ---
Today's Communication / Plan
-
Improving.
Advance to clears.
Replace K.
Continue drain.
Ambulate.
Assessment / Plan
-
Patient is a 75 yo F POD#2 s/p laparoscopic appendectomy and drainage of intra-abdominal abscess for perforated appendicitis
AVSS
Labs notable for normal WBC, drop in Hb 14 -> 10.8 (stable), Hypokalemia and normal renal function
Given the perforated nature of her appendicitis she is at increased risk for an ileus. Her nausea has resolved and her bowels are functioning. Will begin clear liquids. Encouraged ambulation. Drift in Hb likely related to hydration, good urine
output, no tachycardia or hypotension. Would repeat CBC tomorrow. Okay to continue with Toradol and Lovenox.
-- Clears liquids
-- IVF
-- Replace K
-- Abx: Zosyn, would plan on 7-10 day course. Cultures with E coli and Pseudomonas, both sensitive to Zosyn.
-- Continue drain.
-- Pain control: Tylenol, Toradol, IV Dilaudid PRN
-- Home meds
-- OOB/ambulate
-- Repeat CBC and BMP tomorrow
Subjective Data
-
Date of Service: September 10, 2025
Her nausea has resolved. Passing some flatus and had a small bowel movement.
She denies abdominal distention.
Objective Data
-
Intake and Output
09/09/25 09/10/25 09/11/25
06:59 06:59 06:59
Intake Total 400 / 400 3140 / 3140 690 / 690
Output Total 650 / 650 40 / 40
Balance -250 / -250 3100 / 3100 690 / 690
Intake:
Oral fluids 1200 / 1200 480 / 480
IV fluids (Total) 400 / 400 1840 / 1840 160 / 160
Normosal 400 / 400
IV piggybacks 100 / 100 50 / 50
Output:
Drain Output (Total) 200 / 200 40 / 40
Left Middle Abdomen Forrest- 200 / 200 40 / 40
[place]
Urine, Voided 450 / 450
Other:
Number of approximated MODERATE 5 2
amounts of urine
Number of approximated LARGE 1
amounts of urine
Vital Signs
Temp Pulse Resp BP Pulse Ox
98.0 F 92 17 156/80 96
09/10/25 07:15 09/10/25 07:15 09/10/25 07:15 09/10/25 07:15 09/10/25 07:15
Lab Results
09/10/25 05:41
09/10/25 05:41
Calcium 7.8 mg/dl (8.4-10.2) L 09/10/25 05:41
Total Bilirubin 2.1 mg/dl (0.2-1.3) H 09/07/25 17:10
AST 22 U/L (14-36) 09/07/25 17:10
ALT 16 U/L (0-35) 09/07/25 17:10
Alkaline Phosphatase 61 U/L (38-126) 09/07/25 17:10
Total Protein 6.5 g/dl (6.3-8.2) 09/07/25 17:10
Albumin 4.5 g/dl (3.5-5.0) 09/07/25 17:10
Physical Exam
-
NAD
Abd: soft, nondistended and nontender. Drain with 40cc of serous fluid. The incisions are healing well.
Ext: no edema or tenderness
Patient has a chan catheter: No
Patient has a central line: No
[2025-09-10] MEDS: KCL 260 MEQ IV (12:52)
[2025-09-10 15:20] VITALS: BP 154/74
[2025-09-10] MEDS: LOVENOX 40 MG SC (15:45)
[2025-09-10 19:42] VITALS: BP 158/75
[2025-09-10 23:02] VITALS: BP 156/73
[2025-09-11] MEDS: KCL 1020 MEQ IV (02:09)
[2025-09-11] MEDS: ZOSYN 50 IV ×4 (04:43→21:36)
[2025-09-11] MEDS: TYLENOL PO ×3 (04:43→23:28)
[2025-09-11 06:29] LABS: Hematocrit 33.6 % (37.0-47.0); Hemoglobin 11.3 g/dL (12.0-16.0); Mean Corp Hgb Conc. 33.6 g/dL (33.0-37.0); Mean Corpuscular Volume 88.7 fL (81.0-99.0); Platelet Count 130 10^3/uL (130-400); Red Cell Dist. Width 12.4 % (11.5-14.5)
[2025-09-11 06:59] LABS: Blood Urea Nitrogen 7 mg/dl (7-17); Calcium 8.0 mg/dl (8.4-10.2); Carbon Dioxide 25 mmol/L (22-30); Chloride 107 mmol/L (98-107); Estimated Creatinine Clearance 80 ml/min; Glucose 110 mg/dl (70-99); Magnesium 1.8 mg/dl (1.6-2.3); Potassium 3.3 mmol/L (3.5-5.1); Sodium 138 mmol/L (135-145); eGFR > 60.00
[2025-09-11 07:20] VITALS: BP 147/80
[2025-09-11] MEDS: TYLENOL 650 MG PO ×3 (07:58→21:36)
[2025-09-11] MEDS: NORVASC 2.5 MG PO ×2 (07:58→21:33)
[2025-09-11] MEDS: CRESTOR 5 MG PO (07:58)
[2025-09-11] MEDS: PEPCID 40 MG PO (09:04)
[2025-09-11] MEDS: KCL IV (10:52)
[2025-09-11] MEDS: KCL 40 MEQ PO (10:52)
--- NOTE | 2025-09-11 11:12 | PTCARENOTE ---
pt experienced nausea again o/v. but improved this AM. Pepcid added, upgraded to FULLS, IVF stopped, pt walked hallway with nurse. ok'd to walk to bathroom.
--- NOTE | 2025-09-11 14:00 | W.PN.GS2 ---
Today's Communication / Plan
-
full liquids
Assessment / Plan
-
Patient is a 75 yo F POD#3 s/p laparoscopic appendectomy and drainage of intra-abdominal abscess for perforated appendicitis
AVSS
No leukocytosis
H/H stable
Hypokalemia and normal renal function
Given the perforated nature of her appendicitis she is at increased risk for an ileus. Her nausea has resolved and her bowels are functioning. Will advance to full liquids. Encouraged ambulation.
-- Full liquids
-- d/c IVF
-- Replace K
-- Abx: Zosyn, would plan on 7-10 day course. Cultures with E coli and Pseudomonas, both sensitive to Zosyn.
-- Continue drain, anticipate removal prior to d/c
-- Pain control: Tylenol, Toradol, IV Dilaudid PRN
-- Home meds
-- OOB/ambulate
-- Continue lovenox for VTE ppx
Subjective Data
-
Date of Service: September 11, 2025
Pt seen and examined at bedside with Dr. Green. Denies n/v this morning but did have some nausea overnight. Tolerating clears. A little heartburn this am. Passing flatus and some loose stools. Abdominal discomfort continues to improve.
Objective Data
-
Intake and Output
09/10/25 09/11/25 09/12/25
06:59 06:59 06:59
Intake Total 3140 / 3140 3770 / 3770 1769
Output Total 40 / 40 50 / 50
Balance 3100 / 3100 3720 / 3720 1769
Intake:
Oral fluids 1200 / 1200 1560 / 1560 1440 / 1440
IV fluids (Total) 1840 / 1840 1760 / 1760 280 / 280
IV piggybacks 100 / 100 450 / 450 50 / 50
Output:
Drain Output (Total) 50 / 50
Left Middle Abdomen Forrest- 50
[place]
Other:
Number of approximated MODERATE 5 4 2
amounts of urine
Number of approximated LARGE 2
amounts of urine
Number of unmeasured liquid
stools
Rectum 2
Vital Signs
Temp Pulse Resp BP Pulse Ox
98.4 F 81 16 147/80 94
09/11/25 07:20 09/11/25 07:20 09/11/25 07:20 09/11/25 07:20 09/11/25 07:20
Lab Results
09/11/25 05:30
09/11/25 05:30
Calcium 8.0 mg/dl (8.4-10.2) L 09/11/25 05:30
Magnesium 1.8 mg/dl (1.6-2.3) 09/11/25 05:30
Total Bilirubin 2.1 mg/dl (0.2-1.3) H 09/07/25 17:10
AST 22 U/L (14-36) 09/07/25 17:10
ALT 16 U/L (0-35) 09/07/25 17:10
Alkaline Phosphatase 61 U/L (38-126) 09/07/25 17:10
Total Protein 6.5 g/dl (6.3-8.2) 09/07/25 17:10
Albumin 4.5 g/dl (3.5-5.0) 09/07/25 17:10
Physical Exam
-
NAD
Abd: soft, nondistended and minimal expected tenderness. Drain with 50cc of serous fluid. The incisions are healing well.
Ext: no edema or tenderness
Patient has a chan catheter: No
Patient has a central line: No
[2025-09-11 15:10] VITALS: BP 133/60
[2025-09-11] MEDS: LOVENOX 40 MG SC (16:20)
[2025-09-11 23:30] VITALS: BP 149/65
[2025-09-12] MEDS: ZOSYN 50 IV ×2 (04:17→10:46)
[2025-09-12] MEDS: TYLENOL PO ×2 (04:20→13:01)
[2025-09-12 07:15] VITALS: BP 161/72
[2025-09-12 07:46] LABS: Hematocrit 34.9 % (37.0-47.0); Hemoglobin 12.0 g/dL (12.0-16.0); Mean Corp Hgb Conc. 34.4 g/dL (33.0-37.0); Mean Corpuscular Volume 86.2 fL (81.0-99.0); Platelet Count 145 10^3/uL (130-400); Red Cell Dist. Width 12.3 % (11.5-14.5)
[2025-09-12 08:00] LABS: Blood Urea Nitrogen 7 mg/dl (7-17); Calcium 8.5 mg/dl (8.4-10.2); Carbon Dioxide 27 mmol/L (22-30); Chloride 108 mmol/L (98-107); Estimated Creatinine Clearance 68 ml/min; Glucose 109 mg/dl (70-99); Potassium 3.9 mmol/L (3.5-5.1); Sodium 140 mmol/L (135-145); eGFR > 60.00
[2025-09-12] MEDS: PEPCID 40 MG PO (09:33)
[2025-09-12] MEDS: CRESTOR 5 MG PO (09:33)
[2025-09-12] MEDS: NORVASC 2.5 MG PO (09:33)
[2025-09-12] MEDS: TYLENOL 650 MG PO (09:33)
[2025-09-12] MEDS: FLUSH (NSS) 2 FLUSH IV (10:47)
--- NOTE | 2025-09-12 11:23 | W.PN.GS2 ---
Today's Communication / Plan
-
advance diet, dispo planning
Assessment / Plan
-
Patient is a 75 yo F POD#4 s/p laparoscopic appendectomy and drainage of intra-abdominal abscess for perforated appendicitis
AVSS
No leukocytosis
H/H stable
Hypokalemia resolved with replacement
Bowels recovering
-- Advance diet
-- Abx: Zosyn, would plan on 7-10 day course. Cultures with E coli and Pseudomonas, both sensitive to Zosyn.
-- Continue drain, anticipate removal prior to d/c
-- Pain control: Tylenol, Toradol, IV Dilaudid PRN
-- Home meds
-- OOB/ambulate
-- Continue lovenox for VTE ppx
discharge later today if tolerating diet
Subjective Data
-
Date of Service: September 12, 2025
Pt seen and examined at bedside with Dr. Philip. Ruiz n/v. Tolerating fulls. Passing some liquid stools/flatus. Still sore but pain improved.
Objective Data
-
Intake and Output
09/11/25 09/12/25 09/13/25
06:59 06:59 06:59
Intake Total 3770 / 3770 1845 / 1845 50 / 50
Output Total
Balance 3720 / 3720 1817 / 1817 50 / 50
Intake:
Oral fluids 1560 / 1560 1440 / 1440
IV fluids (Total) 1760 / 1760 305 / 305
IV piggybacks 450 / 450 100 / 100 50 / 50
Output:
Drain Output (Total)
Left Middle Abdomen Forrest-
[place]
Other:
How many times incontinent 1
MODERATE amount urine
Number of approximated MODERATE 4 3
amounts of urine
Number of approximated LARGE 2 1
amounts of urine
Number of unmeasured liquid
stools
Rectum 2 2
Vital Signs
Temp Pulse Resp BP Pulse Ox
98 F 68 16 161/72 96
09/12/25 07:15 09/12/25 07:15 09/12/25 07:15 09/12/25 07:15 09/12/25 09:00
Lab Results
09/12/25 06:18
09/12/25 06:19
Calcium 8.5 mg/dl (8.4-10.2) 09/12/25 06:19
Magnesium 1.8 mg/dl (1.6-2.3) 09/11/25 05:30
Total Bilirubin 2.1 mg/dl (0.2-1.3) H 09/07/25 17:10
AST 22 U/L (14-36) 09/07/25 17:10
ALT 16 U/L (0-35) 09/07/25 17:10
Alkaline Phosphatase 61 U/L (38-126) 09/07/25 17:10
Total Protein 6.5 g/dl (6.3-8.2) 09/07/25 17:10
Albumin 4.5 g/dl (3.5-5.0) 09/07/25 17:10
Physical Exam
-
NAD
Abd: soft, nondistended and minimal expected tenderness. Drain with minimal serous fluid. The incisions are healing well.
Ext: no edema or tenderness
Patient has a chan catheter: No
Patient has a central line: No
--- NOTE | 2025-09-12 13:31 | W.DS.TRANS ---
Addendum entered and electronically signed by ZAID Santiago 09/12/25 17:20:
dictated #[id number]
Original Note:
DC Summary - Vendor Specialist
-
Discharge Instructions:
Discharge Diagnosis/Procedures Acute appendicitis. Laparoscopic appendectomy
Diet As tolerated,Regular
Additional Diets Smaller meals initially after surgery as
abdominal bloating and distention are common for
the first few days
Activity No strenuous activity
Additional Activity No lifting over 20 pounds for 3 to 4 weeks
postop
Driving Restrictions No driving for 24 hours
Bathing Restrictions OK to Shower
Wound Care Glue at surgical sites typically peels off in 2
to 3 weeks. Cover the site where your drain was
with a clean gauze dressing and change
Instructions:
Stand-Alone Forms:
Changes to Home Medications: No
Discharge Medications:
DC Medications w/original date entered in [facility]
amlodipine 5 mg tablet 2.5 mg PO BID Blood Pressure 03/23/25
calcium 600 mg (as carbonate)-vitamin D3 10 mcg (400 unit) tablet (Calcium 600 + D(3)) 1 tab PO DAILY Supplement 03/23/25
cyanocobalamin (vitamin B-12) 1,000 mcg tablet (Vitamin B-12) 1,000 mcg PO DAILY Supplement 03/23/25
rosuvastatin 5 mg tablet 5 mg PO DAILY High Cholesterol 03/23/25
acetaminophen 325 mg tablet 650 mg (2 x 325 mg) PO Q4HPRN PRN mild pain #1 tab 03/30/25
ciprofloxacin HCl 500 mg tablet 500 mg PO Q12H #7 tabs 09/12/25
metronidazole 500 mg tablet 500 mg PO Q8H 10 days #11 tabs 09/12/25
tramadol 50 mg tablet 25 - 50 mg (0.5 - 1 x 50 mg) PO Q6HPRN PRN severe pain/breakthrough pain #5 tabs 09/12/25
Home Medication Changes
Pending Results: No
[2025-09-12 15:35] VITALS: BP 144/68
--- NOTE | 2025-09-12 15:55 | CM ---
Chart reviewed. Patient will d/c home today. Diet advanced
[facility] accepted for services
Patient's sister will transport home
IMM reviewed
[facility]IL[facility]N

Plan: Home w/ [facility]
== END 2025-09-12 16:16 | disposition home health service (06) | DRG 398 ==
LOC: 2 SOUTH 12:58
PROVIDERS: Emergency Medicine; Registered Nurse; Surgery; ADMITTING PHYSICIAN Surgery; EMERGENCY PHYSICIAN Emergency Medicine; FAMILY PHYSICIAN Nurse Practitioner Family
PROC: 0DTJ4ZZ Resection of Appendix, Percutaneous Endoscopic Approach (ICD-10-PCS; 2025-09-08)
PROC: 0W9F30Z Drainage of Abdominal Wall with Drainage Device, Percutaneous Approach (ICD-10-PCS; 2025-09-08)
DX: K35.33 Acute appendicitis with perforation, localized peritonitis, and gangrene, with abscess (principal); K56.7 Ileus, unspecified; E87.6 Hypokalemia; I10 Essential (primary) hypertension; Z85.6 Personal history of leukemia; Z85.72 Personal history of non-Hodgkin lymphomas; I25.10 Atherosclerotic heart disease of native coronary artery without angina pectoris; K44.9 Diaphragmatic hernia without obstruction or gangrene; Z87.891 Personal history of nicotine dependence; Z80.0 Family history of malignant neoplasm of digestive organs; Z82.49 Family history of ischemic heart disease and other diseases of the circulatory system; E78.00 Pure hypercholesterolemia, unspecified; K66.0 Peritoneal adhesions (postprocedural) (postinfection)
CPT/HCPCS: 74177; 80048; 80053; 81003; 81015; 83690; 83735; 85025; 85027; 87070; 87075; 87077; 87186; 87205; 88304; 93005; Q9967